=== PATIENT | female | born 1950 | race Caucasian/White ===

== ENCOUNTER 2016-11-26 14:37 | Emergency (ER) | payer MEDICARE ==
[~2016-11-26] VITALS: Ht 170.2 cm; Wt 86.4 kg
[2016-11-26 14:49] VITALS: BP 171/80; PULSE 90; RESP 18; O2SAT 100
--- NOTE | 2016-11-26 15:15 | ED.REPORT ---
HPI-Seizure Date of Service Nov 26, 2016 ED Provider: Adilsno Maddox Patient is a 66 year old female who presents to the ED via EMS s/p a seizure- like episode onset just prior to arrival. Per guardian, she was tight, rigid, her back was arched, hands twisted, and eyes shut. Her episode lasted about 30 seconds and she was nonverbal during this time. She came out of the episode very slowly. Patient claims she feels good, does not feel sick, and has been sleeping well. She denies numbness, weakness, or any other symptoms. She denies previous similar episodes. She has not had any recent medicine changes. Nursing Notes Stated Complaint: SEIZURE Chief Complaint: Neuro Symptoms/ Deficits Nursing Notes Reviewed: Yes Allergies: Coded Allergies: No Known Allergies (Unverified , 11/26/16) Scheduled Levothyroxine (Levothyroxine) 50 Mcg Tablet 50 MCG PO DAILY General Time Seen by Provider: 15:15 Chief Complaint Chief Complaint: Abnormal movements Hx Obtained From: Patient, Parking Lot Chauffeur Arrived By: Ambulance Onset Occurred: Just prior to arrival Symptom Duration: Since onset Similar Sx Previous: No Past Medical History Past Medical History Denies Past Surgical History Denies Social History Other Social History: Good social support Ambulatory Status Independent Review of Systems Neurologic: Reports: Seizure, Weakness, Denies: Numbness Complete sys rev & neg: except as marked. Physical Exam Initial Vital Signs Vital Signs (First) Date Time Temp Pulse Resp B/P Pulse Ox O2 Delivery O2 Flow Rate FiO2 11/26/16 14:49 36.7 90 18 171/80 100 Room Air Initial VS: Reviewed Head / Eyes: Atraumatic, Normocephalic Skin: Warm, Dry Psychiatric: Mood/affect normal, Behavior normal, Normal thought content General/Constitutional: Awake, Alert, Well appearing, Well developed Neck: Full range of motion Respiratory / Chest: Breath sounds NL, Breath sounds = bilat, No respiratory distress Cardiovascular: Heart rate NL, Regular rhythm, Heart sounds NL, No gallop, No murmurs, No rubs Neurologic: Speech NL (Baseline) Upper extremity strength normal. Interpretation & Diagnostics Lab Results Interpretation Result Diagram: 11/26/16 1540 11/26/16 1540 Test 11/26/16 15:40 White Blood Count 8.3th/mm3 (3.8-10.1) Red Blood Count 4.95mil/mm3 (3.90-5.20) Hemoglobin 14.9g/dL (12.0-15.6) Hematocrit 43.2% (35.0-46.0) Mean Corpuscular Volume 87.3fL (81-100) Mean Corpuscular Hemoglobin 30.1pg (27.0-35.0) Mean Corpuscular Hemoglobin Concent 34.5% (32.0-37.0) Red Cell Distribution Width 12.4% (12.3-15.4) Platelet Count 337bil/L (150-400) Neutrophils (%) (Auto) 66.0% (40-74) Lymphocytes (%) (Auto) 24.5% (14-46) Monocytes (%) (Auto) 8.1% (4-12) Eosinophils (%) (Auto) 1.0% (0-5) Basophils (%) (Auto) 0.2% (0-3) Sodium Level 138mEq/L (134-144) Potassium Level 4.2mEq/L (3.5-5.2) Chloride Level 98mEq/L (97-108) Carbon Dioxide Level 27mmol/L (18-29) Blood Urea Nitrogen 12mg/dL (8-27) Creatinine 0.76mg/dL (0.57-1.00) Estimat Glomerular Filtration Rate 110mL/min (>59) Glucose Level 137mg/dL (60-99) Calcium Level 9.4mg/dL (8.5-10.1) Total Bilirubin 0.3mg/dL (0.0-1.2) Aspartate Amino Transf (AST/SGOT) 20U/L (0-50) Alanine Aminotransferase (ALT/SGPT) 19U/L (0-32) Alkaline Phosphatase 113U/L (25-165) Total Protein 7.7g/dL (6.4-8.4) Albumin 4.2g/dL (3.4-5.0) CT Head Interpretation IMPRESSION: 1. No acute intracranial process. Dictated by: Ruchi Jordan M.D. on 11/26/2016 at 16:39 Approved by: Ruchi Jordan M.D. on 11/26/2016 at 16:40 Study: Head CT no contrast Interpretation / Wet Read by: Interpret - Radiologist Re-Eval/Medical Decision Re-Evaluation/Progress : Time of Eval: 17:19 )( Re-Eval Neurologic Exam: Alert, Pt is back to baseline Re-Evaluation/Progress Note: Discussed plan for discharge and plan in case of another seizure. Counseled Regarding: Diagnosis, Lab results, When/why to return to ED Discharge & Departure Impression: Primary Impression: First time seizure Disposition: Home Discharge Condition All VS Reviewed: Yes Condition: Stable Additional Instructions: Emergency Department evaluation included a becoming examination, labs and CT brain. No serious abnormality is identified. It is possible that the event witnessed today was a seizure. Advised following up with neurology and not working on ladders etc. until evaluation is completed. No new medications are indicated at present. Continue previous home medications. Return to emergency department if you experience another seizure. Referrals: Merary Edwards (PCP) Scribe Attestation Portions of this note were transcribed by Alex Payne. I, Dr. Maddox personally performed the history, physical exam and medical decision-making; I reviewed and confirmed the accuracy of the information in the transcribed note. Signed by: Alex Payne 11/26/16, [id number] copies to: Merary Edwards Donald L MD Nov 26, 2016 15:15 ALEX PAYNE Nov 26, 2016 16:18
[2016-11-26 15:46] VITALS: BP 153/74; PULSE 83; RESP 16; O2SAT 97
[2016-11-26 16:00] LABS: BASOPHILS % (AUTO) 0.2 % (0-3); MONOCYTES % (AUTO) 8.1 % (4-12); Mean Corpuscular Hemoglobin 30.1 pg (27.0-35.0); Mean Corpuscular Volume 87.3 fL (81-100); Platelet Count 337 bil/L (150-400)
[2016-11-26] MEDS ORDERED: LEVO50TA6 PO (16:33)
--- NOTE | 2016-11-26 16:42 | DRSVH ---
PROCEDURE: CT BRAIN WITHOUT CONTRAST ([id number]) INDICATIONS: seizure TECHNIQUE: Noncontrast 4.5 mm thick angled axial sections acquired from the foramen magnum to the vertex, with c oronal reformats. COMPARISON: None. FINDINGS: Image quality: Excellent. CSF spaces: Basal cisterns are patent. No extra-axial fluid collections. Ventricles are normal in size and shape. Brain: No midline shift. No intracranial masses or hemorrhage. Calhoun-white matter interface is norm al. Skull and face: Calvarium and visualized facial bones are intact, without suspicious lesions. Sinuses: Visualized sinuses demonstrate mild ethmoid sinus mucosal thickening. IMPRESSION: 1. No acute intracranial process. Dictated by: Ruchi Jordan M.D. on 11/26/2016 at 16:39 Approved by: Ruchi Jordan M.D. on 11/26/2016 at 16:40
[2016-11-26 17:38] VITALS: BP 135/74; PULSE 82; RESP 21; O2SAT 95
== END 2016-11-26 17:38 | disposition home or self-care (01) ==
LOC: SED 14:37 → EDUNIT# 14:37 → EDBD 14:37 → SED 17:38
DX: R56.9 Unspecified convulsions (principal)